=== PATIENT | female | born 1945 | race Caucasian/White ===

== ENCOUNTER 2017-08-16 12:55 | Emergency (ER) | payer OTHER, BC ==
[2017-08-16 13:03] VITALS: BP 146/87; PULSE 65; TEMP 97.9; BMI 19.8
--- NOTE | 2017-08-16 13:49 | PDOC ---
History of Present Illness - General Chief Complaint: Edema Stated Complaint: LLE SWELLING Time Seen by Provider: 08/16/17 13:40 History Source: Patient Exam Limitations: No Limitations - History of Present Illness Initial Comments: 08/16/17 13:42 72 yo F with ho arthritis, here with c/o left leg swelling, noted today. has had ankle swelling for few days. denies cp or sob. has had dry cough, worse at night when lying flat for some weeks. no known h/o gerd or post nasal drip. no f /c no other complaints. joint pain in left knee chronic, from arthritis. no other mod factors. Past History - Past Medical History Allergies/Adverse Reactions: Allergies Allergy/AdvReac Type Severity Reaction Status Date / Time No Known Allergies Allergy Verified 08/16/17 12:59 Home Medications: Ambulatory Orders Amlodipine Besylate/Benazepril [Lotrel 10-20 mg Capsule] 1 cap PO DAILY HTN: Yes - Surgical History Appendectomy: Yes - Suicide/Smoking/Psychosocial Hx Smoking History: Former smoker Have you smoked in the past 12 months: No Information on smoking cessation initiated: No Hx Alcohol Use: (wine nightly) Review of Systems - Review of Systems Constitutional: No: Chills, Diaphoresis Respiratory: Yes: Cough. No: Orthopnea, Shortness of Breath, Wheezing, Productive cough Cardiac (ROS): No: Chest Pain, Edema, Irregular Heart Rate Musculoskeletal: No: Back Pain Neurological: No: Numbness All Other Systems: Reviewed and Negative *Physical Exam - Vital Signs Last Vital Signs Temp Pulse Resp BP Pulse Ox 97.9 F 65 18 146/87 100 08/16/17 12:55 08/16/17 12:55 08/16/17 12:55 08/16/17 12:55 08/16/17 12:55 - Physical Exam General Appearance: Yes: Appropriately Dressed HEENT: positive: Normal ENT Inspection, Other (mild posterior pharynx cobblestoning, no nasal congestion) Neck: positive: Trachea midline Respiratory/Chest: positive: Lungs Clear, Normal Breath Sounds. negative: Chest Tender Cardiovascular: positive: Regular Rhythm, Regular Rate, S1, S2 Gastrointestinal/Abdominal: positive: Normal Bowel Sounds, Flat, Soft. negative : Tender Musculoskeletal: positive: Normal Inspection. negative: CVA Tenderness Extremity: positive: Normal Inspection, Swelling, Erythema, Inflammation, Other (left leg swelling redness, erythema warmth to mid mayberry.) Integumentary: positive: Normal Color, Warm, Other (left leg warmth, redness.) Neurologic: positive: Fully Oriented, Alert, Normal Mood/Affect ED Treatment Course - RADIOLOGY Radiology Studies Ordered: Category Date Time Status CHEST PA & LAT [RAD] Stat Radiology 08/16/17 13:41 Ordered DUPLEX VASCUL US-1 LEG [US] Stat Ultrasound 08/16/17 13:41 Ordered Medical Decision Making - Medical Decision Making 08/16/17 13:46 72 yo F with h/o HTN here with c/o left leg swelling. no h/o known dvt or pe. no recent travel. h/o arthritis. also dry cough, mild post pharynx cobblestoning. plan cxr , us left leg r/o dvt. 08/16/17 15:40 doppler negative for dvt. noted bakers cyst with hematoma. cxr negative. given referral for rheumatology for poly joint pains, and orthopedic followup pt already has. dc home. *DC/Admit/Observation/Transfer Diagnosis at time of Disposition: Synovial cyst of popliteal space - Discharge Dispostion Disposition: HOME Condition at time of disposition: Improved Admit: No - Referrals Referrals: Christin Stephenson MD [Staff Physician] - - Patient Instructions Printed Discharge Instructions: Bakers Cyst Additional Instructions: you can take ibuprofen 400 mg every 8 hours as needed for pain. elevate leg to reduce swelling. follow up with rheumatology to discuss your multiple joint pains. see referral information for Christin Stephenson ( [employer] stove serv[employer] helper). you should have a repeat ultrasound in 5 - 7 days for persistant pain or swelling. you can follow up with your orthopedist for the bakers cyst as needed. return for any shortness or breath, chest pain or any fever or concerns.
== END 2017-08-16 15:55 | disposition home or self-care (01) ==
LOC: FER 12:55
DX: M71.20 Synovial cyst of popliteal space [Baker], unspecified knee (principal); Z87.891 Personal history of nicotine dependence; I10 Essential (primary) hypertension
CPT/HCPCS: 71020-TC; 93971-TC; 99283-25

== ENCOUNTER 2021-05-15 12:46 | Day surgery (SDC) | payer OTHER, BC ==
[2021-05-14 14:39] VITALS: BMI 19.7
[2021-05-15] MEDS ORDERED: MIDAZOLAM HCL 2 MG/2 ML SINGLE DOSE VIAL ONE ×2 (14:31→14:32)
[2021-05-15] MEDS ORDERED: PROPOFOL 20 ML ONE ×4 (14:31→15:31)
[2021-05-15] MEDS ORDERED: ROPIVACAINE HCL 0.5% 30ML VIAL ONE (14:32)
[2021-05-15 16:18] VITALS: TEMP 97.8
[2021-05-15 17:21] VITALS: PULSE 64
[2021-05-15 17:29] VITALS: BP 150/66
== END 2021-05-15 17:29 | disposition home or self-care (01) ==
LOC: FASU 12:46
PROVIDERS: ATTEND Orthopaedic Surgery Hand Surgery
PROC: 0LN60ZZ Release Left Lower Arm and Wrist Tendon, Open Approach (ICD-10-PCS; 2021-05-15)
PROC: 0PSJ04Z Reposition Left Radius with Internal Fixation Device, Open Approach (ICD-10-PCS; principal; 2021-05-15 15:06)
DX: S52.572A Other intraarticular fracture of lower end of left radius, initial encounter for closed fracture (principal); X58.XXXA Exposure to other specified factors, initial encounter; Y93.9 Activity, unspecified; Y92.9 Unspecified place or not applicable
CPT/HCPCS: 25290; 25609; C1713; 73110-TC-LT-FY

== ENCOUNTER 2021-09-23 17:30 | Emergency (ER) | payer OTHER, BC ==
[2021-09-23 17:54] VITALS: BP 156/91; PULSE 69; TEMP 98.2; BMI 19.7
[2021-09-23] MEDS ORDERED: CYCLOBENZAPRINE HCL 5 MG TABLET PO ONE (17:55)
[2021-09-23] MEDS ORDERED: ACETAMINOPHEN 325 MG TABLET (FP) PO ONE (17:55)
[2021-09-23] MEDS ORDERED: LIDOCAINE 5% TOPICAL PATCH TP ONE (17:55)
[2021-09-23] MEDS ORDERED: LIDOCAINE 5% TOPICAL PATCH ONE (18:09)
[2021-09-23] MEDS ORDERED: CYCLOBENZAPRINE HCL 10 MG TABLET (FP) ONE ×2 (18:09→18:10)
[2021-09-23] MEDS ORDERED: ACETAMINOPHEN 325 MG TABLET (FP) ONE (18:14)
== END 2021-09-23 18:30 | disposition home or self-care (01) ==
LOC: FER 17:30
DX: M54.50 Low back pain, unspecified (principal)
CPT/HCPCS: 99283-25

== ENCOUNTER 2022-08-26 17:44 | Emergency (ER) | payer OTHER, BC ==
[2022-08-26] MEDS ORDERED: ACETAMINOPHEN 500 MG TABLET (FP) PO ONE (18:15)
[2022-08-26] MEDS ORDERED: ACETAMINOPHEN 500 MG TABLET (FP) ONE (18:24)
[2022-08-26 18:42] VITALS: RESP 18; TEMP 98.3; BMI 18.8
[2022-08-26 19:35] VITALS: BP 176/86; PULSE 81
== END 2022-08-26 19:36 | disposition home or self-care (01) ==
LOC: FER 17:44
DX: S52.501A Unspecified fracture of the lower end of right radius, initial encounter for closed fracture (principal); S52.614A Nondisplaced fracture of right ulna styloid process, initial encounter for closed fracture; W01.0XXA Fall on same level from slipping, tripping and stumbling without subsequent striking against object, initial encounter
CPT/HCPCS: 73110-TC-RT-FY; 99283-25

== ENCOUNTER 2022-11-28 12:01 | Observation (INO) | payer OTHER, BC ==
[2022-11-28 13:41] LABS: HEMATOCRIT 19.9 % (32.4-45.2); HEMOGLOBIN 6.1 G/dL (10.7-15.3); MCH 20.3 pg (25.7-33.7); MCHC 30.5 g/dl (32.0-36.0); MEAN CELL VOLUME 66.4 fl (80-96); MEAN PLT VOLUME 8.2 fl (7.5-11.1); PLATELET COUNT 853.2 10^3/uL (134-434); RBC 2.99 10^6/uL (3.60-5.2); RDW 19.9 % (11.6-15.6); WHITE BLOOD COUNT 11.5 10^3/uL (4.0-10.8)
[2022-11-28 13:56] LABS: ALBUMIN 3.2 g/dl (3.4-5.0); BILIRUBIN,TOTAL 0.6 mg/dl (0.2-1); CALCIUM 8.7 mg/dl (8.5-10); CREATININE 0.5 mg/dl (0.55-1.3); TOT PROT 6.8 g/dl (6.4-8.2)
[2022-11-28 15:40] LABS: INR 1.89 (0.83-1.09); PROTHROMBIN TIME (PATIENT) 21.9 SEC (9.7-13.0)
[2022-11-28 19:30] VITALS: BMI 18.1
[2022-11-28] MEDS ORDERED: ACETAMINOPHEN 325 MG TABLET (FP) PO PRN (21:29)
[2022-11-28] MEDS: CARVEDILOL 12.5 MG TABLET (FP) PO SCH (23:00)
[2022-11-29 00:02] VITALS: RESP 18
[2022-11-29 08:58] LABS: CALCIUM 8.7 mg/dl (8.5-10); CREATININE 0.5 mg/dl (0.55-1.3)
[2022-11-29] MEDS: LISINOPRIL 20 MG TABLET PO SCH (09:32)
[2022-11-29] MEDS: VITAMIN B COMPLEX W/C COMBO TABLET (FP) PO SCH (09:33)
[2022-11-29] MEDS: methylPREDNISolone 4 MG TABLET PO SCH (09:33)
[2022-11-29] MEDS: CARVEDILOL 12.5 MG TABLET (FP) PO SCH ×2 (09:33→21:35)
[2022-11-29] MEDS: CHOLECALCIFEROL (VIT D3) 1,000 UNIT (25 MCG) TABLET PO SCH (09:33)
[2022-11-29] MEDS ORDERED: methylPREDNISolone 2 MG TABLET PO SCH (10:00)
[2022-11-29] MEDS ORDERED: PATIENT'S OWN MEDICATION (NON-FORMULARY) (Calcium Carb/Magnesium Oxid/D3 [Calcium Magnesiu PO SCH (10:00)
[2022-11-29 11:03] LABS: BASO % 0.7 % (0-2.0); EOS % 0.7 % (0-4.5); HEMATOCRIT 27.6 % (32.4-45.2); HEMOGLOBIN 8.7 GM/dL (10.7-15.3); LYMPH % 10.9 % (8-40); MCH 21.8 pg (25.7-33.7); MCHC 31.4 g/dl (32.0-36.0); MEAN CELL VOLUME 69.3 fl (80-96); MEAN PLT VOLUME 7.1 fl (7.5-11.1); MONO % 10.1 % (3.8-10.2); NEUT % 77.6 % (42.8-82.8); PLATELET COUNT 699 10^3/uL (134-434); RBC 3.99 M/mm3 (3.60-5.2); RDW 22.7 % (11.6-15.6); WHITE BLOOD COUNT 11.1 K/mm3 (4.0-10.0)
[2022-11-29 11:49] LABS: ANISOCYTOSIS 3+; MACROCYTOSIS 0; OVALOCYTE 2+; TEAR DROP CELLS 1+
[2022-11-29] MEDS: PANTOPRAZOLE SODIUM 40 MG VIAL IVPUSH SCH (21:35)
[2022-11-30 09:19] LABS: CALCIUM 8.8 mg/dl (8.5-10); CREATININE 0.5 mg/dl (0.55-1.3); PHOSPHOROUS 4.4 mg/dl (2.5-4.9)
[2022-11-30 10:26] LABS: BASO % 0.9 % (0-2.0); EOS % 0.7 % (0-4.5); HEMATOCRIT 28.1 % (32.4-45.2); HEMOGLOBIN 8.7 GM/dL (10.7-15.3); LYMPH % 15.1 % (8-40); MCH 21.4 pg (25.7-33.7); MCHC 30.8 g/dl (32.0-36.0); MEAN CELL VOLUME 69.4 fl (80-96); MEAN PLT VOLUME 7.1 fl (7.5-11.1); MONO % 13.2 % (3.8-10.2); NEUT % 70.1 % (42.8-82.8); PLATELET COUNT 661 10^3/uL (134-434); RBC 4.05 M/mm3 (3.60-5.2); RDW 22.4 % (11.6-15.6); WHITE BLOOD COUNT 8.1 K/mm3 (4.0-10.0)
[2022-11-30] MEDS: VITAMIN B COMPLEX W/C COMBO TABLET (FP) PO SCH (10:56)
[2022-11-30] MEDS: CHOLECALCIFEROL (VIT D3) 1,000 UNIT (25 MCG) TABLET PO SCH (10:56)
[2022-11-30] MEDS: CARVEDILOL 12.5 MG TABLET (FP) PO SCH (10:58)
[2022-11-30] MEDS: LISINOPRIL 20 MG TABLET PO SCH (10:58)
[2022-11-30] MEDS: PANTOPRAZOLE SODIUM 40 MG VIAL IVPUSH SCH (10:58)
[2022-11-30] MEDS: methylPREDNISolone 4 MG TABLET PO SCH (10:58)
[2022-11-30 14:12] VITALS: BP 124/52; PULSE 72; TEMP 98.8
== END 2022-11-30 13:50 | disposition home or self-care (01) ==
LOC: FER 12:01 → FM/S 15:26
PROVIDERS: ADMIT Internal Medicine; ATTEND Internal Medicine
PROC: 30233N1 Transfusion of Nonautologous Red Blood Cells into Peripheral Vein, Percutaneous Approach (ICD-10-PCS; principal; 2022-11-28)
DX: I10 Essential (primary) hypertension (principal); E78.5 Hyperlipidemia, unspecified; M06.9 Rheumatoid arthritis, unspecified; R55 Syncope and collapse; Z79.01 Long term (current) use of anticoagulants; D64.9 Anemia, unspecified; K92.2 Gastrointestinal hemorrhage, unspecified; M35.3 Polymyalgia rheumatica; I48.91 Unspecified atrial fibrillation; Z95.0 Presence of cardiac pacemaker; D75.839 Thrombocytosis, unspecified
CPT/HCPCS: 0241U-QW; 36415; 36430; 71045-TC-FY; 80048; 80053; 82272; 82728; 83540; 83550; 83735; 84100; 85025; 85027; 85610; 85730; 86870; 86900; 86902; 86922; 93005; 99285-25; G0378; P9058